=== PATIENT | female | born 1995 | race Caucasian/White ===

== ENCOUNTER 2022-02-18 16:43 | Emergency (ER) | payer MEDICAID ==
[~2022-02-18] VITALS: Ht 157.5 cm; Wt 68.0 kg
[2022-02-18 16:50] VITALS: BP 113/74
[2022-02-18] MEDS ORDERED: SULF1TAB48 MT (18:56)
[2022-02-18] MEDS ORDERED: LIDOCAINE HCL 1% 20ML VIAL (Pyxis) INJ INFIL ONE (19:00)
== END 2022-02-18 19:09 | disposition home or self-care (01) ==
LOC: ER 16:43
DX: L73.1 Pseudofolliculitis barbae (principal); Z98.890 Other specified postprocedural states
CPT/HCPCS: 81025; 99283